=== PATIENT | female | born 1970 | race Two or more races ===

== ENCOUNTER → 2020-03-12 | Emergency (ER) | payer MEDICAID ==
[~2020-03-12] VITALS: Ht 167.6 cm; Wt 68.0 kg
[~2020-03-12] MED LIST: KETOROLAC TROMETH 60MG/2ML VIAL IM ONE
[2020-03-12 05:22] VITALS: BP 115/63
== END | disposition home or self-care (01) ==
LOC: ER 02:23
DX: G43.909 Migraine, unspecified, not intractable, without status migrainosus (principal)
CPT/HCPCS: 70450; 96372; 99284; J1885